=== PATIENT | female | born 1965 | race Hispanic/Latino ===

== ENCOUNTER 2019-05-19 07:44 | Outpatient (CLI) | payer BC ==
--- NOTE | 2019-06-16 16:39 | MMO ---
Bilateral MAMMO Bilat Screen [facility]. CLINICAL HISTORY: Patient is 54 years old and is seen for screening. The patient family history of breast cancer is unknown. The patient has no personal history of cancer. VIEWS: The views performed were: bilateral craniocaudal with tomosynthesis and bilateral mediolateral oblique with tomosynthesis. MAMMOGRAM FINDINGS: There are scattered fibroglandular densities. There are no suspicious masses, suspicious calcifications, or new areas of architectural distortion. IMPRESSION: THERE IS NO MAMMOGRAPHIC EVIDENCE OF MALIGNANCY. A ROUTINE FOLLOW-UP MAMMOGRAM IN 1 YEAR IS RECOMMENDED. THE RESULTS OF THIS EXAM WERE SENT TO THE PATIENT. ACR BI-RADS Category 1 - Negative MAMMOGRAPHY NOTE: 1. A negative mammogram report should not delay a biopsy if a dominant of clinically suspicious mass is present. 2. Approximately 10% to 15% of breast cancers are not detected by mammography. 3. Adenosis and dense breasts may obscure an underlying neoplasm. Reported by: KIAN MARSHALL MD Electonically Signed: [id number]
== END 2019-05-19 07:45 | disposition home or self-care (01) ==
LOC: BICMAMMO 07:44
PROVIDERS: ATTEND Physician Assistant
DX: Z12.31 Encounter for screening mammogram for malignant neoplasm of breast (principal)
CPT/HCPCS: 77063; 77067

== ENCOUNTER 2019-08-24 07:47 | Outpatient (CLI) | payer BC ==
[2019-08-24 13:02] LABS: Hemoglobin 14.8 g/dL (12.0-16.0); Mean Corpuscular HGB CONC 34.1 g/dL (32.0-36.0); Mean Corpuscular Hemoglobin 31.6 pg (27.0-31.0); Mean Corpuscular Volume 92.7 fL (78.0-98.0); Mean Platelet Volume 8.1 fL (7.4-10.4); Platelet Count 250 thou/uL (130-400); Red Blood Cell (RBC) Count 4.67 mill/uL (4.20-5.40); White Blood Cell (WBC) Count 7.9 thou/uL (4.8-10.8)
[2019-08-24 13:12] LABS: Bacteria/HPF None Seen HPF (None Seen); Bilirubin Negative (Negative); Blood, Urine 2+ (Negative); Clarity Clear (Clear); Glucose, Urine (Dipstick) Normal (Negative); Leukocyte Negative Leu/uL (Negative); Nitrite Negative (Negative); Protein, Urine (Dipstick) Negative (Neg-Trace); Squamous Epithelial 0-3 HPF (0-3); Urobilinogen Normal mg/dL (Less than 2); WBC/HPF 0-3 HPF (0-3)
[2019-08-24 13:28] LABS: Anion Gap 12 mmol/L (10-20); BUN (Urea Nitrogen) 9 mg/dL (9.8-20.1); Calc. Creatinine Clearance 0 mL/min (70-130); Calcium 10.2 mg/dL (7.8-10.44); Carbon Dioxide 29 mmol/L (22-29); Chloride 104 mmol/L (98-107); Estimated GFR-MDRD 78; Glucose 96 mg/dL (70-105); Potassium 3.7 mmol/L (3.5-5.1); Sodium 141 mmol/L (136-145)
--- NOTE | 2019-08-25 07:14 | EKG ---
Test Reason : Blood Pressure : / mmHG Vent. Rate : 063 BPM Atrial Rate : 063 BPM P-R Int : 160 ms QRS Dur : 076 ms QT Int : 414 ms P-R-T Axes : 049 044 018 degrees QTc Int : 423 ms Normal sinus rhythm Cannot rule out Anterior infarct , age undetermined T wave abnormality, consider inferior ischemia poor quality suggest repeat Abnormal ECG No previous ECGs available Confirmed by DR. Gretchen ANTONIO ([id number]) on 08/25/2019 7:13:37 AM Referred By: ROBERT Confirmed By:DR. Gretchen ANTONIO
== END 2019-08-24 07:48 | disposition home or self-care (01) ==
LOC: LABBT 07:47
PROVIDERS: ATTEND Urology
DX: Z01.818 Encounter for other preprocedural examination (principal); N39.3 Stress incontinence (female) (male); R31.29 Other microscopic hematuria
CPT/HCPCS: 80048; 81001; 85027; 87086; 93005; 93010

== ENCOUNTER 2019-08-30 06:04 | Day surgery (SDC) | payer BC ==
[2019-08-24 11:54] VITALS: BMI 29.7
[2019-08-30] MEDS ORDERED: metroNIDAZOLE 500 MG/100 ML BAG ONE (06:55)
[2019-08-30] MEDS ORDERED: Bupivacaine 0.25% HCL 30 ML VIAL ONE (08:20)
[2019-08-30] MEDS ORDERED: Famotidine/PF 20 mg/2ml Vial ONE (08:21)
[2019-08-30] MEDS ORDERED: Fentanyl 100 MCG/2 ML VIAL ONE (08:21)
--- NOTE | 2019-08-30 10:21 | OP ---
DATE OF PROCEDURE: 08/30/2019 PREOPERATIVE DIAGNOSIS: Stress incontinence. POSTOPERATIVE DIAGNOSIS: Stress incontinence. PROCEDURES PERFORMED: Placement of Obtryx II midurethral sling, cystoscopy. ANESTHESIA: General. COMPLICATIONS: None. SPECIMEN: None. BLOOD LOSS: 50 mL. DESCRIPTION OF PROCEDURE: After informed consent, the patient was taken to the operating room, transferred to the table on her own power. Anesthesia was established. A time-out was performed, showing the correct patient, site, and procedure. Preoperative antibiotics were administered. She was prepped and draped in the high lithotomy position. Upon placing the vaginal weighted speculum, I did note that she has some apical prolapse, but very minimal cystocele. A Miller catheter was placed with 10 mL instilled in the balloon. The bladder was drained and then the catheter capped. The area overlying the mid urethra was infiltrated with 10 mL of 0.25% Marcaine. A 10 blade was then used to make a 1.5 cm incision over the mid urethra, and this was carried out laterally with Metzenbaum scissors. The spot below the adductor longus tendon in line with the clitoris was marked on both sides, and then 15 blade was used to make a small stab incision in these locations. A 10 mL of 0.25% Marcaine was infiltrated through the small stab incisions into the obturator fossa on both sides. The trocars were then passed and the sling attached and passed through the incision. The sling was tensioned over the pool suction enabling me to ensure proper angle of the sling. I ensured there was no vaginal buttonholing. I then performed cystoscopy after removing her catheter, noting no evidence of mesh in the urethra or bladder. The arms of the sling were then trimmed, and the vaginal incision was closed with 2-0 chromic. The skin edges were cauterized, and then the stab incisions in the thigh were closed with Dermabond. She was awoken from anesthesia, transferred back to her hospital bed and taken to PACU in stable condition, where she will discharge to home upon recovery. Job ID: [id number] [facility]
[2019-08-30] MEDS ORDERED: Ondansetron PF 4 MG/2 ML Vial ONE (10:41)
[2019-08-30] MEDS ORDERED: Dexamethasone 20 MG/5 ML VIAL ONE (10:41)
== END 2019-08-30 11:00 | disposition home or self-care (01) ==
LOC: SDC 06:04
PROVIDERS: ATTEND Urology
PROC: 0TSD0ZZ Reposition Urethra, Open Approach (ICD-10-PCS; principal; 2019-08-30)
DX: N39.3 Stress incontinence (female) (male) (principal); F17.210 Nicotine dependence, cigarettes, uncomplicated
CPT/HCPCS: C1781; J0131; J0690; J1100; J2405; J3010; S0020; S0028

== ENCOUNTER 2020-11-08 08:15 | Outpatient (CLI) | payer BC ==
--- NOTE | 2020-11-08 08:54 | MMO ---
Bilateral MAMMO Bilat Screen [facility]. CLINICAL HISTORY: Patient is 55 years old and is seen for screening. The patient family history of breast cancer is unknown. The patient has no personal history of cancer. VIEWS: The views performed were: bilateral craniocaudal with tomosynthesis and bilateral mediolateral oblique with tomosynthesis. FILMS COMPARED: The present examination has been compared to prior imaging studies performed at [facility] on 05/19/2019, and at [facility] on 05/21/2016. This study has been interpreted with the assistance of computer-aided detection. MAMMOGRAM FINDINGS: There are scattered fibroglandular densities. There are no suspicious masses, suspicious calcifications, or new areas of architectural distortion. IMPRESSION: THERE IS NO MAMMOGRAPHIC EVIDENCE OF MALIGNANCY. A ROUTINE FOLLOW-UP MAMMOGRAM IN 1 YEAR IS RECOMMENDED. THE RESULTS OF THIS EXAM WERE SENT TO THE PATIENT. ACR BI-RADS Category 1 - Negative MAMMOGRAPHY NOTE: 1. A negative mammogram report should not delay a biopsy if a dominant of clinically suspicious mass is present. 2. Approximately 10% to 15% of breast cancers are not detected by mammography. 3. Adenosis and dense breasts may obscure an underlying neoplasm. Reported by: KIAN MARSHALL MD Electonically Signed: [id number]
== END 2020-11-08 08:16 | disposition home or self-care (01) ==
LOC: BICMAMMO 08:15
PROVIDERS: ATTEND Internal Medicine
DX: Z12.31 Encounter for screening mammogram for malignant neoplasm of breast (principal); Z80.3 Family history of malignant neoplasm of breast
CPT/HCPCS: 77063; 77067

== ENCOUNTER 2021-11-11 14:32 | Outpatient (CLI) | payer BC | END 2021-11-11 14:33 | disposition home or self-care (01) | LOC: BICMAMMO 14:32 | PROVIDERS: ATTEND Internal Medicine | DX: Z12.31 Encounter for screening mammogram for malignant neoplasm of breast (principal) | CPT/HCPCS: 77063; 77067 ==

== ENCOUNTER 2022-11-14 11:12 | Outpatient (CLI) | payer BC | END 2022-11-14 11:13 | disposition home or self-care (01) | LOC: SCSRAD 11:12 | PROVIDERS: ATTEND Internal Medicine | DX: M47.26 Other spondylosis with radiculopathy, lumbar region (principal); Z98.890 Other specified postprocedural states | CPT/HCPCS: 72100 ==

== ENCOUNTER 2022-12-11 11:23 | Outpatient (CLI) | payer BC | END 2022-12-11 11:24 | disposition home or self-care (01) | LOC: SCSMRI 11:23 | PROVIDERS: ATTEND Internal Medicine | DX: M47.26 Other spondylosis with radiculopathy, lumbar region (principal); M48.07 Spinal stenosis, lumbosacral region; Z98.890 Other specified postprocedural states | CPT/HCPCS: 72148 ==

== ENCOUNTER 2022-12-23 08:49 | Outpatient (CLI) | payer BC | END 2022-12-23 08:50 | disposition home or self-care (01) | LOC: BICMAMMO 08:49 | PROVIDERS: ATTEND Internal Medicine | DX: Z12.31 Encounter for screening mammogram for malignant neoplasm of breast (principal); N64.89 Other specified disorders of breast | CPT/HCPCS: 77063; 77067 ==

== ENCOUNTER 2023-01-08 09:01 | Outpatient (CLI) | payer BC | END 2023-01-08 09:02 | disposition home or self-care (01) | LOC: BICMAMMO 09:01 | PROVIDERS: ATTEND Internal Medicine | DX: N64.89 Other specified disorders of breast (principal) | CPT/HCPCS: G0279 ==

== ENCOUNTER 2024-01-07 13:08 | Outpatient (CLI) | payer BC | END 2024-01-07 13:09 | disposition home or self-care (01) | LOC: BICRAD 13:08 | PROVIDERS: ATTEND Internal Medicine | DX: M25.361 Other instability, right knee (principal) ==

== ENCOUNTER 2024-01-14 07:35 | Outpatient (CLI) | payer BC | END 2024-01-14 07:36 | disposition home or self-care (01) | LOC: BICMRI 07:35 | PROVIDERS: ATTEND Internal Medicine | DX: M25.361 Other instability, right knee (principal); M25.461 Effusion, right knee; M24.19 Other articular cartilage disorders, other specified site ==